=== PATIENT | female | born 1995 | race Caucasian/White ===

== ENCOUNTER 2017-12-06 15:09 | Observation (INO) ==
[2017-12-06 16:29] LABS: Amphetamine Screen,Urine Negative ng/mL (Cutoff=1000); Barbiturate Screen,Urine Negative ng/mL (Cutoff=200); Benzodiazepines Screen,Urine Negative ng/mL (Cutoff=200); Cannabinoid Screen,Urine Positive ng/mL (Cutoff = 50); Cocaine Screen,Urine Negative ng/mL (Cutoff= 300); Opiate Screen,Urine Negative ng/mL (Cutoff=300); Phencyclidine Screen,Urine Negative ng/mL (Cutoff=25)
--- NOTE | 2017-12-06 16:46 | OB/GYN Progress Note ---
Date of Encounter: 12/06/17 Time of Encounter: 16:43 - Assessment and Plan (1) 38 weeks gestation of Current Visit: Yes Status: Acute No cervical change Reactive NST Discharge home with labor precautions Follow up in office with routine care and PRN (2) NST (non-stress test) reactive Current Visit: Yes Status: Acute Subjective - Subjective Principal diagnosis: Labor Rule Out Interval history: Ms Zamudio is a at 38 weeks and 4 days that presents to triage with c/o contractions. She states positive movement. She denies headaches, vision changes, epigastric pain, leaking of fluid, and vaginal bleeding. She is seen in the office by Dr Lara. Antepartum ROS: new complaints, movement normal, contractions Objective - Vital Signs Vital Signs: Intake and Output 12/06/17 12/06/17 12/06/17 07:59 15:59 23:59 Other: Weight 55.021 kg Patient Weight 12/06/17 23:59 Weight 55.021 kg - Exam FHR: auscultation normal, category 1 FHR comments: Irregular Ctx Category I tracing - baseline 155 Auscultation: bilateral: normal Abdomen: Present: normal appearance, soft, gravid Uterus: Present: normal. Absent: firm, tenderness Cervical dilation: 4 Cervix effacement: 80 station: -2 - Labs Labs: Abnormal lab results U Marijuana (THC) Screen Positive ng/mL (Cutoff = 50) H 12/06/17 15:45
[2017-12-06] MEDS ORDERED: *HR* Nalbuphine 10 MG/ML AMPUL IM PRN (21:19)
== END 2017-12-06 18:00 | disposition home or self-care (01) ==
LOC: 1NENULAB
PROVIDERS: ADMIT Advanced Practice Midwife; ATTEND Advanced Practice Midwife

== ENCOUNTER 2017-12-07 04:42 | Inpatient (IN) ==
[~2017-12-07 04:42] MED LIST: Naloxone 0.4 MG/ML INJ IVP PRN; Ringers Solution, Lactated 1,000 ML ONE; miSOPROStol 100 MCG TABLET PO ONE
[2017-12-07] MEDS ORDERED: *HR* Oxytocin 10 UNIT/ML VIAL IM ONE (04:45)
--- NOTE | 2017-12-07 04:46 | OB/GYN History & Physical ---
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 Zamudio is a 22 year old female at 38 weeks, 4 days who presents with intensified contractions. Pt was seen earlier in the day with contractions and evaluated to rule out labor. Pt was discharged home and at that time, pt was 4/80/-2 with no change from admission. Pt reported movement, and denies headache, blurry vision, SOB, nausea, loss of clear fluid, vaginal bleeding. Pt returned 9 hrs later with increased and intensifying contractions. care with Dr. Lara. Labs: Blood Type: O-Positive Rh Status: Negative GBS: Negative HIV Ab: Negative Treponema Ab: Negative G/C: Negative Varicella: NON-IMMUNE Rubelle: Immune Urine Drug Screen: Positive for Cannabinoids Hep B Surf Ag: Not done Past Med Surg Social Fam HX - Past Medical History Attestation: Yes The following information was validated with the patient. Source: patient Medical history: no medical history Psychiatric history: no psych history - Past Surgical History Surgical History: cholecystectomy Additional surgical history: right knee surgery - Social History Smoking Status: Current every day smoker Smokeless Tobacco Status: No Alcohol use: none Drug use: marijuana - Family History Mother Living Status: Still Living Hx Family Cardiac Disorders: No Hx Family Respiratory Disorders: No Hx Family Cancer: No Hx Family GI Disorders: No Hx Family Endocrine Disorder: Yes (thyroid surgery) Hx Family Neuromuscular Disorders: No Hx Family Neurologic Disorders: No Hx Family HEENT Disorders: No Hx Family Autoimmune Disorders: No Obstetrical History - Pregnancies : 3 Para: 2 Term: 2 : 0 Ab's: 0 Livin Medications and Allergies 3 Allergy/AdvReac Type Severity Reaction Status Date / Time No Known Allergies Allergy Verified 12/06/17 15:24 Review of System OB All systems PM: reviewed and no additional remarkable complaints except as stated Exam - Vital Signs Vital signs: Vitals signs stable - Constitutional Constitutional: well developed, well nourished, no acute distress, morbidly obese - HEENT HEENT: EOMI, Normocephaly - Neck Neck exam: full ROM - Lungs Respiratory exam: CTAB - Cardiovascular Cardiovascular exam: RRR, +S1, +S2 - Abdomen Abdomen: Present: bowel sounds normal, gravid - Comments Comments: I examined this patient and my medical decision-making was reviewed with the Resident Physician. I agree with the documented findings, disposition and treatment plan as described except to the extent set forth below. GRETA Gonzales Results All other labs normal. - VTE Reasons for not Prescribing Prophylaxis: Treatment not Indicated - Low risk for VTE
--- NOTE | 2017-12-07 04:56 | OB/GYN Procedure Note ---
Delivery - Delivery Date: 12/07/17 Provider: Roxy Lopes (Andrew,PGY1) Intrapartum events: precipitous labor- <3hr Delivery induction: none Delivery monitor: external FHT, external uterine Quantitated Blood Loss: 400 - (s) A Delivery Date: 12/07/17 Delivery Time: 03:50 Presentation: vertex Position: SUMANTH Route of delivery: Gender: Female Viability: Viable Pounds: 6 Ounces: 13 at 1 minute: 5 at 5 mins: 8 Shoulder Dystocia: not encountered Specimens collected: cord blood Placenta: spontaneous, uterine exploration Cord: 3 umbilical vessels - Repair Episiotomy: none Laceration Description: None - Complications Delivery complications: none - Disposition Mom disposition: stable in LDR disposition: stable in LDR - Comments Comments: Called to LDR for delivery Dr. Morales, PGY 1 at bedside, as I entered the room delivered in bed with RN. Infant was placed on maternal abdomen. No nuchal cord, meconium or shoulder dystocia was encountered. No lacerations were noted on exam. Cord was clamped and cut after pulsations ceased. Cord blood was collected. Patient had no IV as this was a precipitous delivery therefor Pitocin 10MU IM was given. Placenta delivered spontaneously and intact. Pericare was performed, all counts correct. Patient was given Cytotec 400mcg PO x 1 due to no IV access. Both mother and stable in LDR for 2 hour recovery.
[2017-12-07 05:51] LABS: Basophils % 0.2 %; Eosinophils # 0.1 K/mcL (0.0-0.6); Eosinophils % 0.4 %; Hematocrit 32.8 % (35.3-44.9); Hemoglobin 10.9 g/dL (11.5-15.4); Immature Granulocytes % 0.5 % (0-4); Lymphocytes # 2.6 K/mcL (0.6-4.6); Mean Corpuscular HGB Conc 33.2 g/dL (31.6-35.5); Mean Corpuscular Hemoglobin 30.1 pg (28.0-33.3); Mean Corpuscular Volume 90.6 fL (83.0-100.0); Mean Platelet Volume 9.8 fL (9.4-12.4); Monocytes % 6.5 %; Neutrophils # 11.5 K/mcL (1.6-8.9); Platelet Count 204 K/mcL (140-400); Red Blood Count 3.62 M/mcL (3.82-4.97); Red Cell Distribution Width 13.2 % (11.5-14.5); Segmented Neutrophils % 75.4 %
[2017-12-07 05:54] LABS: Amphetamine Screen,Urine Negative ng/mL (Cutoff=1000); Barbiturate Screen,Urine Negative ng/mL (Cutoff=200); Benzodiazepines Screen,Urine Negative ng/mL (Cutoff=200); Cannabinoid Screen,Urine Positive ng/mL (Cutoff = 50); Cocaine Screen,Urine Negative ng/mL (Cutoff= 300); Opiate Screen,Urine Negative ng/mL (Cutoff=300); Phencyclidine Screen,Urine Negative ng/mL (Cutoff=25)
[2017-12-07] MEDS ORDERED: Oxytocin 20 units/ LR 1000 mL 20 UNIT/1,000 ML BAG IVC SCH (06:33)
[2017-12-07] MEDS ORDERED: Acetaminophen 325 MG TABLET PO PRN (06:33)
[2017-12-07] MEDS ORDERED: Measles/Mumps/Rubella Vacc 0.5 ML VIAL SQ PRN (06:33)
[2017-12-07] MEDS: Ibuprofen 600 MG TABLET PO PRN ×3 (07:19→19:36)
[2017-12-07] MEDS ORDERED: Prenatal Vit/FA 1 EACH TABLET PO SCH (09:00)
[2017-12-07] MEDS ORDERED: miSOPROStol 100 MCG TABLET PO ONE (12:18)
[2017-12-08] MEDS: Ibuprofen 600 MG TABLET PO PRN ×2 (00:55→11:17)
[2017-12-08 08:11] VITALS: BP 136/91
--- NOTE | 2017-12-08 09:25 | Discharge Summary ---
Date of Encounter: 12/08/17 Time of Encounter: 09:19 - Discharge Diagnosis (1) Labor, precipitous, delivered Priority: Primary Status: Acute Comments: Mother and baby resting comfortably at bedside in no acute distress Pain controlled with Motrin Reports mild lochia with passage of few clots Ambulating without difficulty Appetite returned to normal Pt denies bowel movements or passing flatus; Bowel sounds present Voiding appropriately Plans to feed with Formula Counseled on signs and symptoms of depression Pt would like nexplanon insert prior to discharge Plan for discharge today - Discharge Medications Prescriptions: Ibuprofen [Motrin] 600 mg PO Q6HR PRN 14 Days #56 tablet PRN Reason: Cramping Docusate [Colace] 100 mg PO BID 14 Days #28 capsule Ferrous Sulfate 325 mg PO DAILY 30 Days #30 tablet Home Medications: Docusate [Colace] 100 mg PO BID 14 Days #28 capsule 12/08/17 [Rx] Ferrous Sulfate 325 mg PO DAILY 30 Days #30 tablet 12/08/17 [Rx] Ibuprofen [Motrin] 600 mg PO Q6HR PRN 14 Days #56 tablet 12/08/17 [Rx] Vit/FA 1 each PO DAILY tablet 12/08/17 [Rx] Allergies/Adverse Reactions: 3 Allergy/AdvReac Type Severity Reaction Status Date / Time No Known Allergies Allergy Verified 12/06/17 15:24 Data Procedures and tests throughout hospitalization: Laboratory Tests 12/07/17 12/07/17 12/07/17 05:29 05:29 05:29 WBC 15.2 H RBC 3.62 L Hgb 10.9 L Hct 32.8 L MCV 90.6 MCH 30.1 MCHC 33.2 RDW 13.2 Plt Count 204 MPV 9.8 Immature Gran % 0.5 Seg Neutrophils % 75.4 Lymphocytes % 17.0 Monocytes % 6.5 Eosinophils % 0.4 Basophils % 0.2 Neutrophils # 11.5 H Lymphocytes # 2.6 Monocytes # 1.0 Eosinophils # 0.1 Basophils # 0.0 Urine Opiates Screen Negative Ur Barbiturates Screen Negative Ur Phencyclidine Scrn Negative Ur Amphetamines Screen Negative U Benzodiazepines Scrn Negative Urine Cocaine Screen Negative U Marijuana (THC) Screen Positive H Ur Drug Screen Interp See Below Hep Bs Antigen Nonreactive Labs on day of discharge: Labs from last 24 hours 12/07/17 05:29 Hep Bs Antigen Nonreactive Date of admission: 12/07/17 04:42 Consults: 12/07/17 06:33 Consult to [employer] [CONS] Routine Reason for SW Consult: admits to Marijuana use in Discharging clinician: Andrew Cheema Anticipated date of discharge: 12/08/17 - Patient Status Disposition: Home, Self-Care Condition: Good Functional capacity at discharge: independent ambulation Overall status at discharge: patient is progressing back to baseline - Discharge Instructions Follow Up With: Roxy Lopes CNM [Non-Partnered Physician] - - Diet and Activity Activity: resume usual activities as tolerated Diet: advance to your usual diet Hospital Course Reason for admission: active labor Delivery: Episiotomy: none Laceration: none Other procedures: none complications: none Discharge diagnosis: IUP at term delivered baby: female Hospital course: Pt was a at 38 weeks 4 days who presented with contractions in active labor. She had been seen earlier in the day with contractions, but had been sent home due to no significant change at /-2 while being monitored. Pt returned 9 hours later in active labor. Pt delivered girl, 6lbs 13oz with apgars of 5/8. There were no lacerations during delivery. Mother and baby resting comfortably in . Plan to discharge home today. Time Attestation: Total time spent providing and/or coordinating discharge services: Time Spent: Less than 30 minutes Exam - Constitutional Vitals: Temp Pulse Resp BP Pulse Ox 97.6 F 83 14 136/91 100 12/08/17 08:10 12/08/17 08:10 12/08/17 08:10 12/08/17 08:10 12/08/17 08:10 General appearance IM: A&O X 3, pleasant, no acute distress, obese, answers questions appropriately - Respiratory Respiratory exam: Present: CTAB - Cardiovascular Cardiovascular exam IM: Present: RRR, +S1, +S2 - GI/Abdominal GI/Abdominal exam IM: normal bowel sounds, soft, no peritoneal signs - Uterine Tone: Firm Uterus Position: At Umbilicus - Extremities Exam Extremities exam IM: Present: full ROM, normal capillary refill, normal inspection, warm, radial pulses palpable and symmetrical - Neurological Exam Neurological exam: alert, CN II-XII intact, oriented X3 - Psychiatric Additional comments: normal mood and affect. counseled on signs / symptoms of blues/ depression - Attending Attestation I have seen and examined this patient with Dr. Anette light and agree with the above assessment.
[2017-12-08] MEDS ORDERED: Etonogestrel 68 MG IMPLANT IL ONE (09:35)
[2017-12-08] MEDS ORDERED: Lidocaine -MPF 1% 5 ML AMPUL SQ ONE (09:35)
--- NOTE | 2017-12-08 11:20 | Event Note ---
Date of Encounter: 12/08/17 Time of Encounter: 11:18 S: Patient requesting nexplanon for contraception. O: PPD 1/lochia light/fundus firm A: Encounter for nexplanon contraception P: Insertion of nexplanon completed Expires 12/08/2020
== END 2017-12-08 12:19 | disposition home or self-care (01) | DRG 775 ==
LOC: 1NENULAB → 1NENUOBS 06:41
PROVIDERS: ADMIT Advanced Practice Midwife; ATTEND Advanced Practice Midwife